=== PATIENT | male | born 1930 | race Caucasian/White ===

== ENCOUNTER 2017-08-09 11:25 | Emergency (ER) | payer BC ==
[2017-08-09 11:39] VITALS: BMI 23.8
[2017-08-09 13:15] LABS: BASOPHIL 0.7 % (0-2.0); EOSINOPHIL 1.6 % (0-4.5); MCH 32.1 pg (25.7-33.7); MCHC 32.7 g/dl (32.0-35.9); MEAN CELL VOLUME 98.1 fl (80-96); MEAN PLT VOLUME 10.2 fl (7.5-11.1); NEUTROPHILS 66.9 % (42.8-82.8); PLATELET COUNT 133 K/MM3 (134-434); RDW 13.6 % (11.9-15.9); WHITE BLOOD COUNT 8.8 K/mm3 (4.0-10.0)
--- NOTE | 2017-08-09 13:31 | PDOC ---
History of Present Illness - General Chief Complaint: Redness To Affected Area Stated Complaint: RT HAND PAIN Time Seen by Provider: 08/09/17 12:12 History Source: Patient Exam Limitations: No Limitations - History of Present Illness Initial Comments: 08/09/17 13:32 87-year-old male with history of gout presents to the ED with complaints of swelling and redness to his right wrist since yesterday. Patient states pain is worsened with movement and denies any recent injury, recent illness, or recent insect bite , wounds to the affected area. Patient denies history of diabetes and presently denies fever or chills. Timing/Duration: reports: yesterday Severity: Yes: moderate Location: reports: hands Respiratory Risk Factors: reports: no cause identified Associated Symptoms: reports: edema Past History - Travel Traveled outside of the country in the last 30 days: No Close contact w/someone who was outside of country & ill: No - Past Medical History Allergies/Adverse Reactions: Allergies Allergy/AdvReac Type Severity Reaction Status Date / Time clindamycin Allergy Verified 08/09/17 11:34 Home Medications: Ambulatory Orders Aspirin [ASA -] 325 mg PO DAILY 04/26/16 Carvedilol [Coreg -] 6.25 mg PO BID 04/26/16 Furosemide [Lasix -] 40 mg PO DAILY 04/26/16 Potassium Chloride [K-Dur -] 20 meq PO BID 04/26/16 Rosuvastatin Calcium [Crestor] 10 mg PO HS 04/26/16 Tamsulosin HCl [Flomax] 0.4 mg PO DAILY 04/26/16 Rivaroxaban [Xarelto -] 15 mg PO DAILY 08/11/16 Cholecalciferol (Vitamin D3) [Vitamin D3 -] 1,000 units PO DAILY 08/09/17 Omeprazole 20 mg PO DAILY 08/09/17 Anemia: No Asthma: No Cancer: No Cardiac Disorders: Yes (UT, AFIB,) CVA: No COPD: No CHF: Yes Dementia: No GI Disorders: Yes (GERD) Disorders: Yes (BPH) HTN: Yes Hypercholesterolemia: Yes Liver Disease: No Seizures: No Thyroid Disease: No - Surgical History Abdominal Surgery: Yes (HERNIA REPAIR) Appendectomy: No Cardiac Surgery: Yes (OPEN HEART 03/2016) Cholecystectomy: No Lung Surgery: No Neurologic Surgery: No Orthopedic Surgery: Yes (BACK SURGERY X 2) - Immunization History Immunization Up to Date: Yes - Suicide/Smoking/Psychosocial Hx Smoking History: Former smoker Have you smoked in the past 12 months: No If you are a former smoker, when did you quit?: 1976 Information on smoking cessation initiated: No Hx Alcohol Use: No Drug/Substance Use Hx: No Substance Use Type: None Hx Substance Use Treatment: No Patient Lives Alone: No Lives with/in: spouse/SO Review of Systems - Review of Systems Able to Perform ROS?: Yes Constitutional: No: Symptoms Reported HEENTM: No: Symptoms Reported Respiratory: No: Symptoms reported Cardiac (ROS): No: Symptoms Reported ABD/GI: No: Symptoms Reported : No: Symptoms Reported Musculoskeletal: Yes: Joint Pain (right wrist) Integumentary: Yes: Erythema Neurological: No: Symptoms reported Hematologic/Lymphatic: No: Symptoms Reported *Physical Exam - Vital Signs Last Vital Signs Temp Pulse Resp BP Pulse Ox 98.0 F 81 18 118/71 100 08/09/17 11:35 08/09/17 11:35 08/09/17 11:35 08/09/17 11:35 08/09/17 11:35 - Physical Exam General Appearance: Yes: Nourished, Appropriately Dressed. No: Apparent Distress Cardiovascular: positive: Regular Rhythm, Regular Rate. negative: Murmur Comments:: 08/09/17 13:53 2+ right radial Extremity: positive: Normal Capillary Refill, Tender ( generally over dorsal aspect of right wrist.). negative: Normal Inspection (mild erythema and edema) Integumentary: positive: Normal Color, Warm, Swelling (with mild erythema over the dorsal aspect of right wrist) Neurologic: positive: Motor Strength 5/5 (right hand grasp) ED Treatment Course - LABORATORY CBC & Chemistry Diagram: 08/09/17 13:00 08/09/17 13:00 - RADIOLOGY Radiology Studies Ordered: Category Date Time Status WRIST W/HAND-RIGHT* [RAD] Stat Radiology 08/09/17 12:39 Completed Medical Decision Making - Medical Decision Making 08/09/17 14:09 Patient here for evaluation of nontraumatic redness and tenderness over the right wrist. Patient does have history of gout (approximately 30 years ago). Patient on exam had no increased warmth but noted erythema and edema over the dorsal aspect of right wrist. Patient had minimal linear range of motion with flexion and dorsiflexion of the right wrist. Patient ordered for CBC, comp uric acid and x-ray. Patient offered Tylenol but states is not uncomfortable presently 08/09/17 14:20 Laboratory Tests 08/09/17 08/09/17 13:00 13:00 WBC 8.8 D Hgb 13.7 D Hct 41.8 D MCV 98.1 H Plt Count 133 L D MPV 10.2 D Monocytes % 14.7 H D Sodium 142 Potassium 4.0 Chloride 107 Carbon Dioxide 28 Anion Gap 7 L BUN 19 H Random Glucose 71 L D Uric Acid 5.8 Calcium 8.5 Total Bilirubin 1.4 H AST 20 D ALT 36 D X-ray shows metallic foreign bodies in the fifth proximal phalanx and the right fourth digit. An acute fracture or subluxation is not seen. 08/09/17 14:21 Due to unknown erythema clinical presentation I will place patient on Keflex for mild cellulitis with recommendations to observe for worsening symptoms. *DC/Admit/Observation/Transfer Diagnosis at time of Disposition: Cellulitis of wrist - Discharge Dispostion Disposition: HOME Condition at time of disposition: Good - Referrals Referrals: José Miguel Merino MD [Primary Care Provider] - - Patient Instructions Printed Discharge Instructions: DI for Cellulitis -- Adult Additional Instructions: Please take antibiotics as prescribed may take Motrin or Tylenol for discomfort. If symptoms increase or continue over the next few days please follow-up with your primary care physician and/or return to the nearest emergency department.
[2017-08-09 13:47] LABS: ALBUMIN 3.4 g/dl (3.4-5.0); ALK PHOS 87 U/L (45-117); ANION GAP 7 (8-16); BILIRUBIN,TOTAL 1.4 mg/dL (0.2-1.0); CALCIUM 8.5 mg/dL (8.5-10.1); CO2 28 mmol/L (21-32); CREATININE 1.2 mg/dL (0.7-1.3); GLUCOSE,RANDOM 71 mg/dL (74-106); SGOT/AST 20 U/L (15-37); SGPT/ALT 36 U/L (12-78); TOT PROT 6.9 g/dl (6.4-8.2); URIC ACID 5.8 mg/dL (2.6-7.2)
[2017-08-09] MEDS ORDERED: CEPHALEXIN MONOHYDRATE 500 MG CAPSULE (UD) PO ONE (14:23)
[2017-08-09 14:34] VITALS: BP 112/68; PULSE 76; TEMP 98.1
[2017-08-09] MEDS ORDERED: CEPHALEXIN MONOHYDRATE 250 MG CAPSULE (FP) ONE (14:40)
== END 2017-08-09 14:52 | disposition home or self-care (01) ==
LOC: JER 11:25
DX: L03.113 Cellulitis of right upper limb (principal); I25.10 Atherosclerotic heart disease of native coronary artery without angina pectoris; I11.0 Hypertensive heart disease with heart failure; Z95.1 Presence of aortocoronary bypass graft; I48.91 Unspecified atrial fibrillation; Z79.01 Long term (current) use of anticoagulants; Z79.82 Long term (current) use of aspirin; K21.9 Gastro-esophageal reflux disease without esophagitis; N40.0 Benign prostatic hyperplasia without lower urinary tract symptoms; E78.00 Pure hypercholesterolemia, unspecified
CPT/HCPCS: 36415; 73110-TC-RT; 73130-TC-RT; 80053; 84550; 85025; 99282-25

== ENCOUNTER 2017-09-29 09:48 | Emergency (ER) | payer BC ==
[2017-09-29 09:53] VITALS: BMI 23.3
--- NOTE | 2017-09-29 10:15 | PDOC ---
Attending Attestation - Resident Resident Name: Sindy Hutchins - ED Attending Attestation I have performed the following: I have examined & evaluated the patient, The case was reviewed & discussed with the resident, I agree w/resident's findings & plan, Exceptions are as noted - HPI HPI: 87 yo M history CAD s/p CABG, on xarelto and ASA presents with rectal bleeding. He states that he felt as if he had to pass gas yesterday, then realized that he passed a clot from his rectum. That happened one time. Now he notes that he has blood on his stools when he defecates. He was evaluated in an urgent care yesterday for the same. Denies any pain. No lightheadedness, SOB, cp, rectal pain, melena. - Physicial Exam PE: GENERAL: Awake, alert, and fully oriented, in no acute distress HEAD: No signs of trauma EYES: PERRLA, EOMI, sclera anicteric, conjunctiva clear ENT: Auricles normal inspection, hearing grossly normal, nares patent, oropharynx clear without exudates. Moist mucosa NECK: Normal ROM, supple, no lymphadenopathy, JVD, or masses LUNGS: Breath sounds equal, clear to auscultation bilaterally. No wheezes, and no crackles HEART: Regular rate and rhythm, normal S1 and S2, no murmurs, rubs or gallops ABDOMEN: Soft, nontender, normoactive bowel sounds. No guarding, no rebound. No masses EXTREMITIES: Normal range of motion, no edema. No clubbing or cyanosis. No cords, erythema, or tenderness NEUROLOGICAL: Cranial nerves II through XII grossly intact. Normal speech, normal gait SKIN: Warm, Dry, normal turgor, no rashes or lesions noted. RECTAL: +Small external hemorrhoid at 7 o'clock position, nontender, nonthrombosed, no active bleeding. - Medical Decision Making Pt presents with bloodwork from urgent care yesterday. Will check serial CBC. If unchanged, will start on hemorrhoid treatment and refer to a surgeon as an outpatient. No intervention indicated at this time, as it is not thrombosed and not actively bleeding. Stool softeners, topical steroids, and sitz baths.
--- NOTE | 2017-09-29 10:16 | PDOC ---
History of Present Illness - General Chief Complaint: Bleeding from Anus Stated Complaint: HEMORRHOIDS Time Seen by Provider: 09/29/17 10:02 - History of Present Illness Initial Comments: 09/29/17 10:17 Patient is an 87 y.o. male with a PMH of CAD (s/p CABG in 2014) who presents to our ED today c/o 3 day h/o of painless rectal bleed with bowel movements. Patient denies any associated abdominal cramping, nausea, vomiting, diarrhea or constipation. Patient has a colonsocopy 30 years previous and states he believes it was normal. Patient presents with paperwork from an urgent care facility yesterday (09/28) that shows INR 1.4 (on Xarelto and Aspirin), Hb 14. Allergy: Clindamycin Surgical: CABG 2014 Social: denies current nicotine use (h/o smoking, quit 40 years previous), denies alcohol, denies recreational drugs PMD: Dr. Dawson Past History - Past Medical History Allergies/Adverse Reactions: Allergies Allergy/AdvReac Type Severity Reaction Status Date / Time clindamycin Allergy Verified 09/29/17 09:49 Home Medications: Ambulatory Orders Aspirin [ASA -] 325 mg PO DAILY 04/26/16 Carvedilol [Coreg -] 6.25 mg PO BID 04/26/16 Furosemide [Lasix -] 40 mg PO DAILY 04/26/16 Potassium Chloride [K-Dur -] 20 meq PO BID 04/26/16 Rosuvastatin Calcium [Crestor] 10 mg PO HS 04/26/16 Tamsulosin HCl [Flomax] 0.4 mg PO DAILY 04/26/16 Rivaroxaban [Xarelto -] 15 mg PO DAILY 08/11/16 Cholecalciferol (Vitamin D3) [Vitamin D3 -] 1,000 units PO DAILY 08/09/17 Omeprazole 20 mg PO DAILY 08/09/17 Anemia: No Asthma: No Cancer: No Cardiac Disorders: Yes (GA, AFIB,) CVA: No COPD: No CHF: Yes Dementia: No Diabetes: Yes (BORDERLINE) GI Disorders: Yes (GERD) Disorders: Yes (BPH) HTN: Yes Hypercholesterolemia: Yes Liver Disease: No Seizures: No Thyroid Disease: No - Surgical History Abdominal Surgery: Yes (HERNIA REPAIR) Appendectomy: No Cardiac Surgery: Yes (OPEN HEART 03/2016) Cholecystectomy: No Lung Surgery: No Neurologic Surgery: No Orthopedic Surgery: Yes (BACK SURGERY X 2) - Immunization History Immunization Up to Date: Yes - Suicide/Smoking/Psychosocial Hx Smoking History: Never smoked Have you smoked in the past 12 months: No If you are a former smoker, when did you quit?: 1976 Information on smoking cessation initiated: No Hx Alcohol Use: No Drug/Substance Use Hx: No Substance Use Type: None Hx Substance Use Treatment: No Review of Systems - Review of Systems Constitutional: No: Chills, Fever Respiratory: No: Shortness of Breath Cardiac (ROS): No: Chest Pain ABD/GI: Yes: Blood Streaked Bowels, Rectal Bleeding. No: Constipated, Diarrhea , Nausea, Vomiting : No: Burning, Dysuria All Other Systems: Reviewed and Negative *Physical Exam - Vital Signs Last Vital Signs Temp Pulse Resp BP Pulse Ox 98.7 F 86 18 143/57 100 09/29/17 09:49 09/29/17 09:49 09/29/17 09:49 09/29/17 09:49 09/29/17 09:49 - Physical Exam General Appearance: Yes: Nourished, Thin Neck: positive: Trachea midline, Supple Respiratory/Chest: positive: Lungs Clear Cardiovascular: positive: S1, S2 Gastrointestinal/Abdominal: positive: Normal Bowel Sounds, Soft. negative: Guarding, Rebound, Tenderness, Hernia, Mass Rectal Exam: positive: hemorrhoids (0.5 cm non-thrombosed external hemorrhroid @ 11 o'clock position) Musculoskeletal: negative: CVA Tenderness (R), CVA Tenderness (L) Extremity: positive: Normal Capillary Refill, Normal Inspection Integumentary: positive: Normal Color, Dry, Warm Neurologic: positive: Fully Oriented, Alert ED Treatment Course - LABORATORY CBC & Chemistry Diagram: 09/29/17 10:05 09/29/17 10:05 Medical Decision Making - Medical Decision Making 10/01/17 02:01 Patient is an 87 y.o. male who presents with rectal bleed. On PE patient has a 0.5 cm external hemorrhoid. CBC shows Hb 14.0 c/w Hb on paperwork provided from urgent care with Hb 14.2 yesterday (09/29). Patient discharged home with Anusol and sitz bath as well as follow up with general surgery. *DC/Admit/Observation/Transfer Diagnosis at time of Disposition: External hemorrhoid - Discharge Dispostion Disposition: HOME Condition at time of disposition: Good Admit: No - Referrals Referrals: José Miguel Dawson MD [Primary Care Provider] - Deo Jaramillo MD [Staff Physician] - - Patient Instructions Printed Discharge Instructions: DI for Hemorrhoids Additional Instructions: PLEASE USE A SITZ BATH AND ANUSOL FOR RELIEF. THE PHARMACIST WILL SHOW YOU HOW TO USE THE SITZ BATHS AND ANUSOL. PLEASE ALSO MAKE AN APPOINTMENT WITH DR. DEO JARAMILLO ([phone]) A GENERAL SURGEON FOR EVALUATION OF YOUR HEMORRHOID. PLEASE RETURN TO THE EMERGENCY DEPARTMENT FOR ANY WORSENING OR CONCERNING SYMPTOMS INCLUDING SHORTNESS OF BREATH, LIGHTHEADEDNESS, PAIN WITH BOWEL MOVEMENTS. FOLLOW UP WITH DR. DAWSON WITHIN THE NEXT WEEK. - Post Discharge Activity
[2017-09-29 10:46] LABS: MCH 31.4 pg (25.7-33.7); MEAN CELL VOLUME 98.1 fl (80-96); MEAN PLT VOLUME 10.3 fl (7.5-11.1); NEUTROPHILS 73.3 % (42.8-82.8); PLATELET COUNT 156 K/MM3 (134-434); RDW 13.1 % (11.9-15.9); WHITE BLOOD COUNT 6.1 K/mm3 (4.0-10.0)
[2017-09-29 11:14] LABS: INR 1.38 (0.82-1.09); PROTHROMBIN TIME (PATIENT) 15.6 SEC (9.98-11.88)
[2017-09-29 11:17] LABS: ACTIVATED PTT 37.2 SECONDS (26.9-34.4)
[2017-09-29 11:22] LABS: ALBUMIN 3.7 g/dl (3.4-5.0); ANION GAP 10 (8-16); BILIRUBIN,TOTAL 1.3 mg/dL (0.2-1.0); CO2 26 mmol/L (21-32); CREATININE 1.3 mg/dL (0.7-1.3); GLUCOSE,RANDOM 209 mg/dL (74-106); SGOT/AST 22 U/L (15-37); SGPT/ALT 37 U/L (12-78); TOT PROT 7.3 g/dl (6.4-8.2)
[2017-09-29 11:23] LABS: ALK PHOS 100 U/L (45-117)
[2017-09-29 11:57] VITALS: BP 153/73; PULSE 84; TEMP 97.9
== END 2017-09-29 11:57 | disposition home or self-care (01) ==
LOC: JER 09:48
DX: K64.9 Unspecified hemorrhoids (principal); Z87.891 Personal history of nicotine dependence; R73.03 Prediabetes; I10 Essential (primary) hypertension; E78.00 Pure hypercholesterolemia, unspecified; K21.9 Gastro-esophageal reflux disease without esophagitis; I25.2 Old myocardial infarction; I48.91 Unspecified atrial fibrillation
CPT/HCPCS: 36415; 80053; 85025; 85610; 85730; 86850; 86900; 86901; 99283-25

== ENCOUNTER → 2017-11-16 | Day surgery (SDC) | payer BC ==
--- NOTE | 2017-11-17 16:47 | PATH ---
Surgical Pathology Report Patient Name: GIO MUNOZ [facility]. Rec. #: [id number] /Age/Gender: 1930 (Age: 87) / M Account: [id number] Location: RADIOLOGY [facility] Taken: 11/16/2017 Received: 11/16/2017 Reported: 11/17/2017 Physicians: Kevin Montilla M.D. Specimen(s) Received LEFT BREAST CORE BIOPSY AT 1:00 Clinical History Male patient 0.4 cm palpable mass 1:00 periareolar Mammographic findings: Suspicious Ultrasound findings: Suspicious Final Diagnosis BREAST, LEFT, 1:00, PERIAREOLAR, ULTRASOUND GUIDED CORE BIOPSY:BENIGN FIBROADIPOSE AND NEUROVASCULAR TISSUE. Comment: Suggest clinical/radiologic correlation. Electronically Signed Hellen Holt M.D. Gross Description Received in formalin labeled "left 1:00," is a 1.2 x 0.8 x 0.2 cm aggregate of multiple hampton-yellow, irregular to cylindrical portions of fibroadipose tissue. The formalin is filtered and the specimen is entirely submitted in one cassette. Time to formalin fixation: Less than one minute Total formalin fixation time: Approximately 9 hours. /11/16/2017 saudi11/16/2017
== END | disposition home or self-care (01) ==
LOC: JRADUS-SUR 07:49
PROVIDERS: ATTEND Internal Medicine
PROC: 0HBU3ZX Excision of Left Breast, Percutaneous Approach, Diagnostic (ICD-10-PCS; principal; 2017-11-16)
DX: N60.22 Fibroadenosis of left breast (principal)
CPT/HCPCS: 19083; 87899; A4648

== ENCOUNTER 2017-12-29 07:24 | Day surgery (SDC) | payer BC ==
[2017-12-28 12:29] VITALS: BMI 24.1
[2017-12-29 08:34] VITALS: TEMP 97.7
[2017-12-29 10:02] VITALS: BP 160/89; PULSE 69
--- NOTE | 2017-12-30 10:20 | PATH ---
Surgical Pathology Report Patient Name: SRIDHAR MUNOZ [facility]. Rec. #: [id number] /Age/Gender: 1930 (Age: 87) / M Account: [id number] Location: ASU-ENDOSCOPY Taken: 12/29/2017 Received: 12/29/2017 Reported: 12/30/2017 Physicians: Sridhar Martin M.D. Specimen(s) Received A: LEFT COLON POLYP B: HEPATIC FLEXURE POLYP Clinical History Preoperative diagnosis: Rectal bleeding Postoperative diagnosis: Polyps, diverticulosis Final Diagnosis A. COLON, LEFT, POLYP, POLYPECTOMY: TUBULAR ADENOMA. B. COLON, HEPATIC FLEXURE, POLYP, POLYPECTOMY: TUBULAR ADENOMA. Electronically Signed Hellen Holt M.D. Gross Description A. Received in formalin, labeled "left colon polyp" is a hampton, irregular portion of soft tissue measuring 0.4 cm. in greatest dimension. The specimen is submitted in toto in one cassette. B. Received in formalin, labeled "polyp hepatic flexure" is a hampton, irregular portion of soft tissue measuring 0.3 cm. in greatest dimension. The specimen is submitted in toto in one cassette. /12/29/2017 saudi12/29/2017
== END 2017-12-29 11:00 | disposition home or self-care (01) ==
LOC: JASU-ENDO 07:24
PROVIDERS: ATTEND Internal Medicine Gastroenterology
PROC: 0DBL8ZX Excision of Transverse Colon, Via Natural or Artificial Opening Endoscopic, Diagnostic (ICD-10-PCS; 2017-12-29)
PROC: 0DBM8ZX Excision of Descending Colon, Via Natural or Artificial Opening Endoscopic, Diagnostic (ICD-10-PCS; principal; 2017-12-29 08:30)
DX: K57.30 Diverticulosis of large intestine without perforation or abscess without bleeding (principal); K92.1 Melena; K63.5 Polyp of colon; D12.4 Benign neoplasm of descending colon
CPT/HCPCS: 88305-TC